=== PATIENT | female | born 1975 | race American Indian/Alaskan Native ===

== ENCOUNTER 2017-03-30 08:14 | Outpatient (CLI) | payer OTHER ==
[2017-03-30 09:04] LABS: Blood Urea Nitrogen 13 mg/dL (7-17)
--- NOTE | 2017-03-30 13:07 | Cat Scan Report ---
CT SCAN OF THE ABDOMEN AND PELVIS WITHOUT AND WITH CONTRAST: HISTORY: Chronic abdominal pain. TECHNIQUE: Helical CT before and after IV contrast. Sagittal and coronal reformatted images. FINDINGS: The liver is normal in size and is without focal defect. No gallstones or biliary dilatation are noted. The spleen and pancreas demonstrate a normal size and attenuation with no evidence of abnormal mass. The kidneys are normal in size and position with no evidence of hydronephrosis or mass. 3 cm cyst in the mid right kidney is noted. The adrenal glands are normal. There is no intestinal obstruction or ascites. Normal appendix. The abdominal aorta is normal. The uterus and adnexa are unremarkable. There is no evidence of peritoneal air or fluid. There is no evidence of any abnormal masses or fluid collections within the pelvis. No adenopathy is identified. The bladder is normal. IMPRESSION: Unremarkable CT scan of the abdomen and pelvis without and with contrast.
== END 2017-03-30 08:15 | disposition home or self-care (01) ==
LOC: CT 08:14
PROVIDERS: ATTEND Student in an Organized Health Care Education/Training Program
DX: E10.49 Type 1 diabetes mellitus with other diabetic neurological complication (principal); N28.1 Cyst of kidney, acquired; F17.200 Nicotine dependence, unspecified, uncomplicated
CPT/HCPCS: 36415; 74178; 82565; 84520; Q9967

== ENCOUNTER 2021-01-04 15:00 | Emergency (ER) | payer OTHER | END 2021-01-04 17:50 | disposition left against medical advice (07) | LOC: ED 15:00 | DX: M79.89 Other specified soft tissue disorders (principal); Z53.21 Procedure and treatment not carried out due to patient leaving prior to being seen by health care provider ==

== ENCOUNTER 2021-01-05 11:31 | Emergency (ER) | payer SELFPAY ==
[2021-01-05 12:07] VITALS: BP 141/85
--- NOTE | 2021-01-05 13:15 | Emergency Department Report ---
Blank Doc - Documentation Documentation: 45-year-old female that presents with bilateral leg swelling/ankle times several days. Patient is homeless and does not follow-up with a primary care doctor. 1- This is a initial triage assessment/medical screening only. Full assessment and work-up will be completed once the patient is in proper hospital gown, ED bed and in a private room setting. This initial assessment/diagnostic orders/clinical plan/ treatment(s) is/are subject to change based on pt's health status, clinical progression and re-assessment by fellow clinical providers in the ED. Further treatment and workup at subsequent clinical providers discretion. Patient/guardians urged not to elope from ED as their condition may be serious if not clinically assessed and managed. 2-labs r/o CHF
[2021-01-05 15:28] LABS: Hematocrit 41.9 % (30.3-42.9); Hemoglobin 13.8 gm/dl (10.1-14.3); Mean Corpuscular HGB Conc 33 % (30-34); Mean Corpuscular Volume 81 fl (79-97); Platelet Count 335 K/mm3 (140-440); Red Blood Count 5.18 M/mm3 (3.65-5.03); Red Cell Distribution Width 16.1 % (13.2-15.2)
[2021-01-05 15:30] LABS: Alanine Aminotransferase 18 units/L (7-56); Albumin 4.2 g/dL (3.9-5); Blood Urea Nitrogen 7 mg/dL (7-17); Calcium 9.6 mg/dL (8.4-10.2); Hemolysis Index 4
[2021-01-05 15:32] LABS: BUN/Creatinine Ratio 12
--- NOTE | 2021-01-05 18:09 | Electrocardiograph Report ---
[facility] Test Date: 2021-01-05 Test Time: 14:47:17 Pat Name: CORY BALLARD Department: Room: Gender: F [employer]: YURY : 1975 Requested By: JAYSON CASTRO Order Number: [id number] Reading MD: Flako Lacy Measurements Intervals [place] Rate: 54 P: -3 MI: 140 QRS: 5 QRSD: 85 T: 23 QT: 501 QTc: 475 Interpretive Statements Sinus bradycardia No previous ECG available for comparison Electronically Signed On 01-05-2021 18:09:07 EDT by Flako Lacy
== END 2021-01-05 12:52 | disposition left against medical advice (07) ==
LOC: ED 11:31
DX: M25.571 Pain in right ankle and joints of right foot (principal); M25.572 Pain in left ankle and joints of left foot; Z53.21 Procedure and treatment not carried out due to patient leaving prior to being seen by health care provider
CPT/HCPCS: 36415; 80053; 82962; 83880; 85025; 93005

== ENCOUNTER 2022-01-24 02:26 | Emergency (ER) | payer SELFPAY ==
[2022-01-24 08:43] VITALS: BP 133/78
[2022-01-24 10:58] LABS: Hematocrit 41.6 % (30.3-42.9); Hemoglobin 12.9 gm/dl (10.1-14.3); Mean Corpuscular HGB Conc 31 % (30-34); Mean Corpuscular Volume 77 fl (79-97); Platelet Count 402 K/mm3 (140-440); Red Blood Count 5.42 M/mm3 (3.65-5.03); Red Cell Distribution Width 19.1 % (13.2-15.2)
[2022-01-24 11:07] LABS: Alanine Aminotransferase 10 units/L (7-56); Albumin 3.7 g/dL (3.9-5); BUN/Creatinine Ratio 18; Blood Urea Nitrogen 14 mg/dL (7-17); Hemolysis Index 2
[2022-01-24] MEDS ORDERED: LIDOCAINE-MPF (1%) 10 MG/1 ML VIAL 5 ML INFILTRATI ONE (13:34)
--- NOTE | 2022-01-24 13:44 | Emergency Department Report ---
ED General Adult HPI - General Chief complaint: Wound/Laceration Stated complaint: INSECT BITE APPROX 2 WKS AGO PUI?: No Time Seen by Provider: 01/24/22 12:30 Source: patient Mode of arrival: Ambulatory Limitations: No Limitations - History of Present Illness Initial comments: 46-year-old female came in today with concerns of two quarter size wounds one on her right forearm distally and also one in her left ankle. No drainage. Patient herself denies any other discomfort. Patient stated that also has been there for the past almost 2 weeks now. - Related Data Previous Rx's Medication Instructions Recorded Last Taken Type Sulfamethoxazole/Trimethoprim 1 each PO BID 5 Days #10 01/24/22 Unknown Rx [Bactrim DS TAB] Allergies Allergy/AdvReac Type Severity Reaction Status Date / Time No Known Allergies Allergy Unverified 03/30/17 08:14 ED Review of Systems ROS: Stated complaint: INSECT BITE APPROX 2 WKS AGO Other details as noted in HPI Comment: All other systems reviewed and negative Constitutional: no symptoms reported, see HPI Eyes: as per HPI ENT: as per HPI Respiratory: no symptoms reported, see HPI Cardiovascular: as per HPI Endocrine: no symptoms reported, see HPI Gastrointestinal: as per HPI Musculoskeletal: as per HPI Skin: lesions. denies: rash, change in color, change in hair/nails, pruritus Neurological: as per HPI Psychiatric: as per HPI Hematological/Lymphatic: as per HPI ED Past Medical Hx - Past Medical History Previous Medical History?: No Hx Diabetes: Yes (NO MEDS) - Surgical History Additional Surgical History: x2 - Social History Smoking Status: Unknown if ever smoked - Medications Home Medications: Home Medications Medication Instructions Recorded Confirmed Last Taken Type Sulfamethoxazole/Trimethoprim 1 each PO BID 5 Days #10 01/24/22 Unknown Rx [Bactrim DS TAB] ED Physical Exam - General Limitations: No Limitations General appearance: alert, in no apparent distress - Head Head exam: Present: atraumatic, normocephalic, normal inspection - Eye Eye exam: Present: normal appearance, PERRL, EOMI Pupils: Present: normal accommodation - ENT ENT exam: Present: normal exam, mucous membranes moist - Neck Neck exam: Present: normal inspection, full ROM - Respiratory Respiratory exam: Present: normal lung sounds bilaterally - Cardiovascular Cardiovascular Exam: Present: regular rate, normal rhythm, normal heart sounds - GI/Abdominal GI/Abdominal exam: Present: soft - Extremities Exam Extremities exam: Present: normal inspection, full ROM, normal capillary refill - Back Exam Back exam: Present: normal inspection, full ROM - Psychiatric Psychiatric exam: Present: normal affect, normal mood - Skin Skin exam: Present: other (To quarter size lesion 1 at the right distal forearm and also 1 at left ankle. No obvious drainage.) ED Course Vital Signs 01/24/22 01/24/22 05:33 08:42 Temperature 97.9 F 97.9 F Pulse Rate 69 88 Respiratory 18 18 Rate Blood Pressure 149/90 133/78 [Right] O2 Sat by Pulse 98 96 Oximetry ED Medical Decision Making - Lab Data Result diagrams: 01/24/22 10:02 01/24/22 10:02 Critical care attestation.: If time is entered above; I have spent that time in minutes in the direct care of this critically ill patient, excluding procedure time. ED Disposition Clinical Impression: Skin lesion Disposition: 01 HOME / SELF CARE / HOMELESS Is pt being admited?: No Does the pt Need Aspirin: No Condition: Stable Additional Instructions: Please take the antibiotic as prescribed for you. If there are no improvement in the next 48 hours please return to the ER immediately for reevaluation Prescriptions: Sulfamethoxazole/Trimethoprim [Bactrim DS TAB] 1 each PO BID 5 Days #10 Referrals: BHARAT CEDILLO MD [Primary Care Provider] - 3-5 Days Time of Disposition: 13:46
== END 2022-01-24 14:05 | disposition home or self-care (01) ==
LOC: ED 02:26
DX: L98.9 Disorder of the skin and subcutaneous tissue, unspecified (principal); E11.9 Type 2 diabetes mellitus without complications; Z98.890 Other specified postprocedural states
CPT/HCPCS: 36415; 80053; 85027; 96372; 99283; J0696; J3490